=== PATIENT | male | born 1985 | race Caucasian/White ===

== ENCOUNTER 2018-10-01 13:34 | Emergency (ER) | payer SELFPAY ==
--- NOTE | 2018-10-01 13:43 | ER Report ---
History and Physical Time Seen By MD: 13:42 HPI/ROS CHIEF COMPLAINT: Heart fluttering HISTORY OF PRESENT ILLNESS: This is a 33-year-old male who presents to the emergency Department for heart fluttering. Patient states over the last 3 days he's noticed his left anterior chest he's had heart fluttering, no associated shortness of breath or chest pain. He is not currently taking any stimulants, has cut out coffee, became concerned that this is increasing in frequency, therefore decided to come in for further evaluation. No recent fevers or chills. No nausea or vomiting. No diaphoresis. No visual changes or rashes. No headaches. The patient is also an over the road inside trucker. REVIEW OF SYSTEMS: Constitutional: No fever, no chills. Eyes: No discharge. ENT: No sore throat. Cardiovascular: As above. Respiratory: No cough, no shortness of breath. Gastrointestinal: No abdominal pain, no vomiting. Genitourinary: No hematuria. Musculoskeletal: No back pain. Skin: No rashes. Neurological: No headache. Allergies: Coded Allergies: lactose (Verified Allergy, Intermediate, diarrhea, 10/01/18) lactose intolerance Past Medical/Surgical History The patient has no significant past medical or surgical history. Reviewed Nurses Notes: Yes Constitutional Vital Sign - Last 24 Hours 10/01/18 10/01/18 10/01/18 10/01/18 13:44 13:44 13:49 13:53 Pulse 90 89 Resp 6 B/P (MAP) 147/95 (112) 147/95 Pulse Ox 95 95 O2 Delivery Nasal Cannula O2 Flow Rate 2.0 10/01/18 10/01/18 10/01/18 10/01/18 14:00 14:04 14:30 14:34 Pulse 92 85 Resp 15 7 B/P (MAP) 141/90 (107) 127/73 (91) Pulse Ox 93 95 10/01/18 10/01/18 10/01/18 10/01/18 14:39 14:49 15:00 15:04 Pulse 90 87 Resp 11 11 B/P (MAP) 130/86 (101) 110/84 (93) Pulse Ox 94 95 10/01/18 15:19 Pulse 84 Resp 26 Pulse Ox 95 Physical Exam General Appearance: The patient is alert, has no immediate need for airway protection and no signs of toxicity. Eyes: Pupils equal and round no pallor or injection. ENT, Mouth: Mucous membranes are moist. Respiratory: There are no retractions, lungs are clear to auscultation. Cardiovascular: Regular rate and rhythm, no murmurs, clicks or rubs. Gastrointestinal: Abdomen is soft and non tender, no masses, bowel sounds junior l. Neurological: Alert and oriented 4. Moving all extremities. Following all commands. No focal neuro deficits. Skin: Warm and dry, no rashes. Musculoskeletal: Neck is supple non tender. Extremities are nontender, nonswollen and have full range of motion. DIFFERENTIAL DIAGNOSIS: After history and physical exam differential diagnosis was considered for chest pain including but not limited to myocardial ischemia, pericarditis pulmonary embolus, chest wall pain, pleural inflammation and pu lmonary infectious causes. Medical Decision Making Data Points Result Diagram: 10/01/18 1409 10/01/18 1409 Laboratory Hematology Test 10/01/18 14:09 Red Blood Count 5.33 M/uL (4.00-5.60) Mean Corpuscular Volume 82.4 fL (80.0-96.0) Mean Corpuscular Hemoglobin 27.5 pg (26.0-33.0) Mean Corpuscular Hemoglobin Concent 33.4 g/dL (32.0-36.0) Red Cell Distribution Width 13.4 % (11.5-14.5) Mean Platelet Volume 8.3 fL (7.2-11.1) Neutrophils (%) (Auto) 71.2 % (39.4-72.5) Lymphocytes (%) (Auto) 20.9 % (17.6-49.6) Monocytes (%) (Auto) 6.6 % (4.1-12.4) Eosinophils (%) (Auto) 0.7 % (0.4-6.7) Basophils (%) (Auto) 0.6 % (0.3-1.4) Nucleated RBC Relative Count (auto) 0.0 /100WBC Neutrophils # (Auto) 6.7 K/uL (2.0-7.4) Lymphocytes # (Auto) 2.0 K/uL (1.3-3.6) Monocytes # (Auto) 0.6 K/uL (0.3-1.0) Eosinophils # (Auto) 0.1 K/uL (0.0-0.5) Basophils # (Auto) 0.1 K/uL (0.0-0.1) Nucleated RBC Absolute Count (auto) 0.00 K/uL D-Dimer Quantitative (PE/DVT) < 0.27 ug/ml (0-0.50) Sodium Level 142 mmol/L (137-145) Potassium Level 3.9 mmol/L (3.5-5.0) Chloride Level 106 mmol/L (98-107) Carbon Dioxide Level 26 mmol/L (22-30) Blood Urea Nitrogen 8 mg/dl (9-21) Creatinine 0.90 mg/dl (0.66-1.25) Glomerular Filtration Rate Calc > 60.0 Random Glucose 99 mg/dl (75-110) Calcium Level 9.4 mg/dl (8.4-10.2) Total Bilirubin 0.8 mg/dl (0.2-1.3) Aspartate Amino Transf (AST/SGOT) 34 U/L (0-35) Alanine Aminotransferase (ALT/SGPT) 58 U/L (0-56) Alkaline Phosphatase 74 U/L (0-126) Troponin I < 0.012 ng/ml Total Protein 8.0 g/dl (6.3-8.2) Albumin 4.6 g/dl (3.5-5.0) Chemistry Test 10/01/18 14:09 White Blood Count 9.4 k/uL (4.5-11.0) Red Blood Count 5.33 M/uL (4.00-5.60) Hemoglobin 14.6 g/dL (14.0-18.0) Hematocrit 43.9 % (42.0-52.0) Mean Corpuscular Volume 82.4 fL (80.0-96.0) Mean Corpuscular Hemoglobin 27.5 pg (26.0-33.0) Mean Corpuscular Hemoglobin Concent 33.4 g/dL (32.0-36.0) Red Cell Distribution Width 13.4 % (11.5-14.5) Platelet Count 386 K/uL (150-450) Mean Platelet Volume 8.3 fL (7.2-11.1) Neutrophils (%) (Auto) 71.2 % (39.4-72.5) Lymphocytes (%) (Auto) 20.9 % (17.6-49.6) Monocytes (%) (Auto) 6.6 % (4.1-12.4) Eosinophils (%) (Auto) 0.7 % (0.4-6.7) Basophils (%) (Auto) 0.6 % (0.3-1.4) Nucleated RBC Relative Count (auto) 0.0 /100WBC Neutrophils # (Auto) 6.7 K/uL (2.0-7.4) Lymphocytes # (Auto) 2.0 K/uL (1.3-3.6) Monocytes # (Auto) 0.6 K/uL (0.3-1.0) Eosinophils # (Auto) 0.1 K/uL (0.0-0.5) Basophils # (Auto) 0.1 K/uL (0.0-0.1) Nucleated RBC Absolute Count (auto) 0.00 K/uL D-Dimer Quantitative (PE/DVT) < 0.27 ug/ml (0-0.50) Glomerular Filtration Rate Calc > 60.0 Calcium Level 9.4 mg/dl (8.4-10.2) Total Bilirubin 0.8 mg/dl (0.2-1.3) Aspartate Amino Transf (AST/SGOT) 34 U/L (0-35) Alanine Aminotransferase (ALT/SGPT) 58 U/L (0-56) Alkaline Phosphatase 74 U/L (0-126) Troponin I < 0.012 ng/ml Total Protein 8.0 g/dl (6.3-8.2) Albumin 4.6 g/dl (3.5-5.0) Coagulation Test 10/01/18 14:09 D-Dimer Quantitative (PE/DVT) < 0.27 ug/ml EKG/Imaging EKG Interpretation 12 lead EKG: Time of EKG 1401 Rhythm: Normal sinus rhythm, ventricular rate 96 bpm. Drifting: normal QRS: normal ST segments: No ST depression or elevation identified, QTC 480. No previous EKGs for comparison. Imaging 2 VIEWS CHEST INDICATION: Chest pain and shortness of breath. COMPARISON: None available FINDINGS: Cardiomediastinal silhouette and pulmonary vessels within normal limits. There is no focal infiltrate or lobar consolidation. There is no pneumothorax or pleural effusion. No nodule. Upper abdomen is unremarkable. No acute bony abnormality. IMPRESSION: 1. No acute cardiopulmonary process. Report Dictated By: Alexander Day at 10/01/2018 2:54 PM Report E-Signed By: Alexander Day at 10/01/2018 2:56 PM WSN:[id number] ED Course/Re-evaluation Clinical Indication for ER IV: IV Access ED Course The patient was admitted to a room. A history and physical were obtained. Differential diagnoses were considered. An IV was started. A CBC, CMP, troponin and d-dimer were obtained. Lab studies are unremarkable, negative d-dimer, ne gative troponin. EKG showing normal sinus rhythm, no ST depression or elevation. Two-view chest x-ray was negative for any acute pulmonary process. I reviewed these results with the patient, I did tell him I don't have a clear exhalation is placed having these palpitations, no palpitations were noted on the bedside monitor today. I did tell patient I felt comfortable sending him home as there are no concerning findings at this time. I did however recommend following up with his primary care provider for a Holter monitor. Patient will also follow up in the nearest emergency department should he have recurrent palpitations, chest pain or shortness of breath. Patient was in agreement with this plan of care and discharged home. Patient was also given 324 mg chewable aspirin. Decision to Disposition Date: Oct 01, 2018 Decision to Disposition Time: 15:23 Depart Departure Latest Vital Signs Vital Signs Date Time Temp Pulse Resp B/P (MAP) Pulse Ox O2 Delivery O2 Flow Rate FiO2 10/01/18 15:19 84 26 95 10/01/18 15:00 110/84 (93) 10/01/18 13:53 2.0 10/01/18 13:44 Nasal Cannula Impression: Primary Impression: Intermittent palpitations Condition: Improved Disposition: HOME OR SELF-CARE Patient Instructions: Holter Monitoring (ED), Palpitations (ED) Additional Instructions: No concerning findings noted on your blood work, EKG or chest Xray today. I am unsure what is causing your palpitations/fluttering, therefore I highly recommend following up with your primary care provider when you return home and discuss the palpitations and a holter monitor. Continue drinking plenty of water. Get plenty of rest. Return to the ED for any other concerns or worsening symptoms. DAREK PABON [employer] Oct 01, 2018 13:43
[2018-10-01] MEDS ORDERED: ASPIRIN 81 MG CHEW PO ONE (13:55)
--- NOTE | 2018-10-01 14:10 | EKG ---
FACILITY: [facility] - [place] PATIENT NAME: MARCO A MAHMOOD : [id number] MR: [id number] V: [id number] EXAM DATE: ORDERING PHYSICIAN: DAREK PABON TECHNOLOGIST: Test Reason : heart fluttering for past 3 days Blood Pressure : / mmHG Vent. Rate : 096 BPM Atrial Rate : 096 BPM P-R Int : 148 ms QRS Dur : 098 ms QT Int : 380 ms P-R-T Axes : 043 022 063 degrees QTc Int : 480 ms Normal sinus rhythm No ST-T abnormalities No previous ECGs available Confirmed by KADE UREÑA ([id number]) on 10/01/2018 4:43:44 PM Referred By: Confirmed By:KADE UREÑA
[2018-10-01 14:24] LABS: PLATELET COUNT, AUTOMATED 386 K/uL (150-450)
[2018-10-01 15:00] VITALS: BP 110/84
--- NOTE | 2018-10-01 15:01 | RADIOLOGY IMAGING REPORT ---
FACILITY: [facility] - [place] PATIENT NAME: Chin Kincaid : 1985 MR: [id number] V: [id number] EXAM DATE: ORDERING PHYSICIAN: DAREK PABON TECHNOLOGIST: Location: [facility] Patient: Chin Kincaid : 1985 Visit/Account:[id number] Date of Sevice: 10/01/2018 2 VIEWS CHEST INDICATION: Chest pain and shortness of breath. COMPARISON: None available FINDINGS: Cardiomediastinal silhouette and pulmonary vessels within normal limits. There is no focal infiltrate or lobar consolidation. There is no pneumothorax or pleural effusion. No nodule. Upper abdomen is unremarkable. No acute bony abnormality. IMPRESSION: 1. No acute cardiopulmonary process. Report Dictated By: Alexander Day at 10/01/2018 2:54 PM Report E-Signed By: Alexander Day at 10/01/2018 2:56 PM WSN:[id number]
== END 2018-10-01 15:40 | disposition home or self-care (01) ==
LOC: ER 13:47
DX: R00.2 Palpitations (principal)
CPT/HCPCS: 71046; 82040; 82247; 82310; 82374; 82435; 82565; 82947; 84075; 84132; 84155; 84295; 84450; 84460; 84484; 84520; 85025; 85379; 93005; 99284